=== PATIENT | female | born 1970 | race Caucasian/White ===

== ENCOUNTER 2018-04-27 21:51 | Emergency (ER) | payer SELFPAY ==
--- NOTE | 2018-04-27 22:32 | RAD REPORT ---
EXAM DESCRIPTION: RAD - Chest Single View - 04/27/2018 10:19 pm CLINICAL HISTORY: Chest pain. COMPARISON: None. FINDINGS: Portable technique limits examination quality. The lungs are grossly clear. The heart is normal in size. No displaced fractures.Gastric banding is n oted. IMPRESSION: No acute intrathoracic process suspected.
[2018-04-27] MEDS ORDERED: NA CHLORIDE 0.9% 1,000 ML ONE (22:38)
[2018-04-27] MEDS ORDERED: THIAMINE 200 MG/2 ML INJ ONE (22:38)
[2018-04-27] MEDS ORDERED: LORazepam 2 MG/ML VIAL ONE (22:38)
[2018-04-27 22:51] LABS: Absolute Lymphocytes (CBC) 1.1 K/uL (0.7-4.9); Absolute Monocytes 0.9 K/uL (0.1-1.3); Absolute Neutrophil 7.7 K/uL (1.8-8.0); Basophils % 0.3 % (0-1.3); Eosinophils % 0.6 % (0-4.4); Hematocrit 42.3 % (36.0-45.0); Lymphocytes % 11.7 % (15.3-44.8); MCH 31.5 pg (27.0-35.0); MCV 93.9 fL (80-100); Monocytes % 9.1 % (3.3-12.3)
[2018-04-27 23:10] LABS: Bicarbonate 23 mEq/L (21-31); Glucose Level 101 mg/dL (65-120); Potassium 3.4 mEq/L (3.6-5.0); Sodium Level 140 mEq/L (135-145)
[2018-04-27 23:16] LABS: ALT/SGPT 18 IU/L (10-60); AST/SGOT 27 IU/L (10-42); Albumin 4.1 g/dL (3.2-5.5); Alkaline Phosphatase 73 IU/L (42-121); BUN Blood Urea Nitrogen 7 mg/dL (6-20); Bilirubin Direct 0.1 mg/dL (0-0.2); Bilirubin Total 0.4 mg/dL (0.3-1.2); Creatine Phosphokinase 56 IU/L (22-269); Magnesium 1.8 mg/dL (1.8-2.5); Protein, Total 7.6 g/dL (6.0-8.3)
[2018-04-27 23:31] LABS: Alcohol Serum/Plasma 99 mg/dl
[2018-04-27 23:32] LABS: Protime INR 0.95
--- NOTE | 2018-04-27 23:46 | ER ---
Nurse's Notes [facility] Name: Mariella Hood Age: 47 yrs Sex: Female : 1970 Arrival Date: 04/27/2018 Time: 21:53 Bed 4 Private MD: Diagnosis: Anxiety disorder, unspecified;Alcohol abuse with intoxication;Hypokalemia;Cystitis Presentation: 04/27 21:54 Presenting complaint: EMS states: Patient's son called to report that patient was found ao laying in the floor moaning. Patient received report that she has cancer and it has been hard on her. Patient also report UTI symptoms like burning and urinary frequency in the past few days. Transition of care: patient was not received from another setting of care. Onset of symptoms is unknown. Risk Assessment: Do you want to hurt yourself or someone else? Patient reports no desire to harm self or others. Initial Sepsis Screen: Does the patient meet any 2 criteria? No. Patient's initial sepsis screen is negative. Does the patient have a suspected source of infection? No. Patient's initial sepsis screen is negative. Care prior to arrival: None. 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 - Social history:: Smoking status: Patient uses tobacco products, smokes one pack cigarettes per day. Patient uses alcohol, occasionally. Patient/guardian denies using street drugs, caffeine. - Ebola Screening: : Patient negative for fever greater than or equal to 101.5 degrees Fahrenheit, and additional compatible Ebola Virus Disease symptoms Patient denies exposure to infectious person Patient denies travel to an Ebola-affected area in the 21 days before illness onset. Screenin:05 Abuse screen: Denies threats or abuse. Denies injuries from another. Nutritional ao screening: No deficits noted. Tuberculosis screening: No symptoms or risk factors identified. Fall Risk None identified. Assessment: 22:04 General: Appears in no apparent distress. comfortable, Behavior is calm, cooperative, ao appropriate for age, Smells of alcohol. Pain: Complains of pain in mouth Pain does not radiate. Neuro: Level of Consciousness is awake, alert, obeys commands, Oriented to person, place, time, situation, Appropriate for age Moves all extremities. Speech is normal, Facial symmetry appears normal, Pupils are PERRLA. Cardiovascular: Capillary refill < 3 seconds Patient's skin is warm and dry. Respiratory: Airway is patent Respiratory effort is even, unlabored, Respiratory pattern is regular, symmetrical. GI: Abdomen is non-distended. : Reports burning with urination, pain with urination, urgency, urinary frequency. EENT: No signs and/or symptoms were reported regarding the EENT system. Derm: Skin is intact, Skin is pink, warm \T\ dry. Skin temperature is warm. Musculoskeletal: Circulation, motion, and sensation intact. Range of motion: intact in all extremities. 22:55 Reassessment: Patient appears in no apparent distress at this time. Patient and/or ao family updated on plan of care and expected duration. Pain level reassessed. Patient is alert, oriented x 3, equal unlabored respirations, skin warm/dry/pink. 04/28 00:42 Reassessment: Patient appears in no apparent distress at this time. DC instructions ao given to patient. Patient agree with the POC and to follow up with PCP. Patient has no questions at this time. Vital Signs: 04/27 21:57 BP 95 / 63; Pulse 104; Resp 24; Temp 99.0; Pulse Ox 99% on R/A; Weight 68.04 kg (R); ao Height 5 ft. 2 in. (157.48 cm) (R); Pain 0/10; 22:55 BP 102 / 64; Pulse 92; Resp 20; Pulse Ox 99% on R/A; ao 04/28 00:42 BP 104 / 75; Pulse 78; Resp 16; Pulse Ox 100% on R/A; Pain 0/10; ao 04/27 21:57 Body Mass Index 27.44 (68.04 kg, 157.48 cm) ao ED Course: 04/27 21:53 Patient arrived in ED. ao 21:54 Tamir Del Valle MD is Attending Physician. arnoldo 21:57 Triage completed. ao 21:57 Arm band placed on right wrist. Patient placed in an exam room, on a stretcher, on ao pulse oximetry, Patient notified of wait time. 22:06 Patient has correct armband on for positive identification. Pulse ox on. NIBP on. ao 22:07 Rickie Terrell, RN is Primary Nurse. ao 22:15 X-ray completed. Portable x-ray completed in exam room. Patient tolerated procedure jb2 well. 22:16 XRAY Chest (1 view) In Process Unspecified. EDMS 22:35 Inserted saline lock: 20 gauge in left antecubital area, using aseptic technique. Blood ao collected. 04/28 00:44 No provider procedures requiring assistance completed. IV discontinued, intact, ao bleeding controlled, No redness/swelling at site. Pressure dressing applied. Administered Medications: 04/27 22:40 Drug: Thiamine 100 mg Route: IV; Rate: bolus; Site: left antecubital; ao 23:59 Follow up: IV Status: Completed infusion ao 22:46 Drug: NS 0.9% 1000 ml Route: IV; Rate: 1 bolus; Site: left antecubital; ao 23:59 Follow up: IV Status: Completed infusion; IV Intake: 1000ml ao 22:46 Drug: Ativan 1 mg Route: IVP; Site: left antecubital; ao 04/28 00:00 Follow up: Response: No adverse reaction ao 04/27 23:59 Drug: Potassium Chloride 20 mEq Route: PO; ao 04/28 00:24 Follow up: Response: No adverse reaction ao 00:35 Drug: Rocephin - (cefTRIAXone) 1 grams Route: IVPB; Infused Over: 30 mins; Site: left ao antecubital; 00:41 Follow up: Response: Medication administered at discharge.; IV Status: Completed ao infusion 00:41 Drug: Cipro 500 mg Route: PO; ao 00:42 Follow up: Response: Medication administered at discharge. ao Intake: 04/27 23:59 IV: 1000ml; Total: 1000ml. ao Outcome: 23:46 Discharge ordered by . [facility] 04/28 00:44 Discharged to home via wheelchair. ao Condition: stable Discharge instructions given to patient, Instructed on discharge instructions, follow up and referral plans. Demonstrated understanding of instructions, follow-up care, medications, Prescriptions given X 2. 00:46 Patient left the ED. ao Signatures: Dispatcher [employer] EDTamir Antonio MD MD cha Buechter, Jesse jb2 Ortiz, Alex, RN RN ao Corrections: (The following items were deleted from the chart) 04/27 22:07 21:54 Presenting complaint: EMS states: Patient's son called to report that patient was ao found laying in the floor moaning. Patient received report that she has cancer and it has been hard on her. ao 22:08 22:04 General: Appears in no apparent distress. comfortable, Behavior is calm, ao cooperative, appropriate for age, ao
--- NOTE | 2018-04-27 23:47 | EDPHYS ---
Physician Documentation [facility] Name: Mariella Hood Age: 47 yrs Sex: Female : 1970 Arrival Date: 04/27/2018 Time: 21:53 Bed 4 Private MD: ED Physician Tamir Del Valle HPI: 04/27 22:07 This 47 yrs old Female presents to ER via EMS with complaints of Anxiety. arnoldo 22:07 The patient has shortness of breath at rest. Onset: The symptoms/episode began/occurred arnoldo just prior to arrival, today. Duration: The symptoms are continuous, and are unchanged since they started. The patient's shortness of breath is aggravated by talking, is alleviated by calming down. The patient presents to the emergency department with anxiety. Past psychiatric history: Prior diagnosis: no previous psychiatric diagnosis known. Associated signs and symptoms: Pertinent positives: non-productive cough, nausea. Severity of symptoms: At their worst the symptoms were mild moderate in the emergency department the symptoms are unchanged. Associated signs and symptoms: Pertinent positives; anxiety, shortness of breath. 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 - Social history:: Smoking status: Patient uses tobacco products, smokes one pack cigarettes per day. Patient uses alcohol, occasionally. Patient/guardian denies using street drugs, caffeine. - Ebola Screening: : Patient negative for fever greater than or equal to 101.5 degrees Fahrenheit, and additional compatible Ebola Virus Disease symptoms Patient denies exposure to infectious person Patient denies travel to an Ebola-affected area in the 21 days before illness onset. ROS: 22:08 Eyes: Negative for injury, pain, redness, and discharge, ENT: Negative for injury, arnoldo pain, and discharge, Neck: Negative for injury, pain, and swelling, Cardiovascular: Negative for chest pain, palpitations, and edema. 22:08 Constitutional: Negative for fever, chills, and weight loss, Abdomen/GI: Negative for abdominal pain, nausea, vomiting, diarrhea, and constipation, Back: Negative for injury and pain, : Negative for injury, bleeding, discharge, and swelling, MS/Extremity: Negative for injury and deformity, Skin: Negative for injury, rash, and discoloration, Neuro: Negative for headache, weakness, numbness, tingling, and seizure, Allergy/Immunology: Negative for hives, rash, and allergies, Endocrine: Negative for neck swelling, polydipsia, polyuria, polyphagia, and marked weight changes, Hematologic/Lymphatic: Negative for swollen nodes, abnormal bleeding, and unusual bruising. 22:08 Constitutional: 22:08 Respiratory: Positive for shortness of breath. 22:08 Psych: Positive for anxiety. Exam: 22:08 Constitutional: This is a well developed, well nourished patient who is awake, alert, arnoldo and in no acute distress. Head/Face: Normocephalic, atraumatic. Eyes: Pupils equal round and reactive to light, extra-ocular motions intact. Lids and lashes normal. Conjunctiva and sclera are non-icteric and not injected. Cornea within normal limits. Periorbital areas with no swelling, redness, or edema. ENT: Nares patent. No nasal discharge, no septal abnormalities noted. Tympanic membranes are normal and external auditory canals are clear. Oropharynx with no redness, swelling, or masses, exudates, or evidence of obstruction, uvula midline. Mucous membranes moist. Neck: Trachea midline, no thyromegaly or masses palpated, and no cervical lymphadenopathy. Supple, full range of motion without nuchal rigidity, or vertebral point tenderness. No Meningismus. Chest/axilla: Normal chest wall appearance and motion. Nontender with no deformity. No lesions are appreciated. Cardiovascular: Regular rate and rhythm with a normal S1 and S2. No gallops, murmurs, or rubs. Normal PMI, no JVD. No pulse deficits. Respiratory: Lungs have equal breath sounds bilaterally, clear to auscultation and percussion. No rales, rhonchi or wheezes noted. No increased work of breathing, no retractions or nasal flaring. Abdomen/GI: Soft, non-tender, with normal bowel sounds. No distension or tympany. No guarding or rebound. No evidence of tenderness throughout. Back: No spinal tenderness. No costovertebral tenderness. Full range of motion. Female : Normal external genitalia. Skin: Warm, dry with normal turgor. Normal color with no rashes, no lesions, and no evidence of cellulitis. MS/ Extremity: Pulses equal, no cyanosis. Neurovascular intact. Full, normal range of motion. Neuro: Awake and alert, GCS 15, oriented to person, place, time, and situation. Cranial nerves II-XII grossly intact. Motor strength 5/5 in all extremities. Sensory grossly intact. Cerebellar exam normal. Normal gait. Psych: Awake, alert, with orientation to person, place and time. Behavior, mood, and affect are within normal limits. 22:08 Musculoskeletal/extremity: DVT Exam: No signs of deep vein thrombosis. no pain, no swelling, no tenderness, negative Homans' sign noted on exam, no appreciated bluish discoloration, no erythema, no increased warmth. Vital Signs: 21:57 BP 95 / 63; Pulse 104; Resp 24; Temp 99.0; Pulse Ox 99% on R/A; Weight 68.04 kg (R); ao Height 5 ft. 2 in. (157.48 cm) (R); Pain 0/10; 22:55 BP 102 / 64; Pulse 92; Resp 20; Pulse Ox 99% on R/A; ao 04/28 00:42 BP 104 / 75; Pulse 78; Resp 16; Pulse Ox 100% on R/A; Pain 0/10; ao 04/27 21:57 Body Mass Index 27.44 (68.04 kg, 157.48 cm) ao MDM: 04/27 21:54 Patient medically screened. [facility] 22:10 Data reviewed: vital signs, nurses notes, lab test result(s), EKG, radiologic studies, [facility] plain films. 04/27 22:06 Order name: Basic Metabolic Panel [facility] 04/27 22:06 Order name: BNP; Complete Time: 23:33 [facility] 04/27 22:06 Order name: CBC with Diff; Complete Time: 22:58 [facility] 04/27 22:06 Order name: Ckmb [facility] 04/27 22:06 Order name: CPK; Complete Time: 23:33 [facility] 04/27 22:06 Order name: LFT's; Complete Time: 23:33 [facility] 04/27 22:06 Order name: Magnesium; Complete Time: 23:33 [facility] 04/27 22:06 Order name: PT-INR; Complete Time: 23:43 [facility] 04/27 22:06 Order name: Ptt, Activated; Complete Time: 23:43 [facility] 04/27 22:06 Order name: Troponin (emerg Dept Use Only); Complete Time: 23:33 [facility] 04/27 22:06 Order name: Acetaminophen; Complete Time: 23:33 [facility] 04/27 22:06 Order name: ETOH Level; Complete Time: 23:33 [facility] 04/27 22:06 Order name: Salicylate; Complete Time: 23:33 [facility] 04/27 22:06 Order name: Urine Drug Screen [facility] 04/27 22:06 Order name: XRAY Chest (1 view); Complete Time: 22:58 [facility] 04/27 22:06 Order name: EKG; Complete Time: 22:07 [facility] 04/27 22:06 Order name: Cardiac monitoring; Complete Time: 22:47 [facility] 04/27 22:07 Order name: Basic Metabolic Panel; Complete Time: 23:33 [facility] 04/27 22:07 Order name: CKMB Creatine Kinase MB; Complete Time: 23:33 [facility] 04/28 00:15 Order name: Urine Dipstick--Ancillary (enter results) [facility] 04/28 00:15 Order name: Urine --Ancillary (enter results) [facility] 04/27 22:06 Order name: EKG - Nurse/Tech; Complete Time: 22:47 [facility] 04/27 22:06 Order name: IV Saline Lock; Complete Time: 22:47 [facility] 04/27 22:06 Order name: Labs collected and sent; Complete Time: 22:47 [facility] 04/27 22:06 Order name: O2 Per Protocol; Complete Time: 22:11 [facility] 04/27 22:06 Order name: O2 Sat Monitoring; Complete Time: 22:11 [facility] Administered Medications: 22:40 Drug: Thiamine 100 mg Route: IV; Rate: bolus; Site: left antecubital; ao 23:59 Follow up: IV Status: Completed infusion ao 22:46 Drug: NS 0.9% 1000 ml Route: IV; Rate: 1 bolus; Site: left antecubital; ao 23:59 Follow up: IV Status: Completed infusion; IV Intake: 1000ml ao 22:46 Drug: Ativan 1 mg Route: IVP; Site: left antecubital; ao 06/14 00:00 Follow up: Response: No adverse reaction ao 04/27 23:59 Drug: Potassium Chloride 20 mEq Route: PO; ao 04/28 00:24 Follow up: Response: No adverse reaction ao 00:35 Drug: Rocephin - (cefTRIAXone) 1 grams Route: IVPB; Infused Over: 30 mins; Site: left ao antecubital; 00:41 Follow up: Response: Medication administered at discharge.; IV Status: Completed ao infusion 00:41 Drug: Cipro 500 mg Route: PO; ao 00:42 Follow up: Response: Medication administered at discharge. ao Disposition: 04/27/18 23:46 Discharged to Home. Impression: Anxiety disorder, unspecified, Alcohol abuse with intoxication, Hypokalemia, Cystitis. - Condition is Stable. - Discharge Instructions: Panic Attacks, Potassium Content of Foods, Dysuria, Panic Attacks, [id number], Hypokalemia. - Prescriptions for Benadryl 25 mg Oral Capsule - take 1 capsule by ORAL route every 6 hours As needed; 30 tablet. Cipro 250 mg Oral Tablet - take 1 tablet by ORAL route every 12 hours; 14 tablet. - Medication Reconciliation Form, Thank You Letter, Antibiotic Education, Prescription Opioid Use form. - Follow up: Private Physician; When: 2 - 3 days; Reason: Recheck today's complaints, Continuance of care, Re-evaluation by your physician. - Problem is new. - Symptoms have improved. Signatures: Dispatcher [employer] EDTamir Antonio MD MD cha Ortiz, Alex, RN RN ao Corrections: (The following items were deleted from the chart) 00:17 04/27 23:46 04/27/2018 23:46 Discharged to Home. Impression: Anxiety disorder, arnoldo unspecified; Alcohol abuse with intoxication; Hypokalemia. Condition is Stable. Discharge Instructions: Panic Attacks, Panic Attacks, [id number]. Prescriptions for Benadryl 25 mg Oral Capsule - take 1 capsule by ORAL route every 6 hours As needed; 30 tablet. and Forms are Medication Reconciliation Form, Thank You Letter, Antibiotic Education, Prescription Opioid Use. Follow up: Private Physician; When: 2 - 3 days; Reason: Recheck today's complaints, Continuance of care, Re-evaluation by your physician. Problem is new. Symptoms have improved. [facility] 04/28 00:46 00:17 04/27/2018 23:46 Discharged to Home. Impression: Anxiety disorder, unspecified; ao Alcohol abuse with intoxication; Hypokalemia; Cystitis. Condition is Stable. Discharge Instructions: Panic Attacks, Panic Attacks, [id number], Potassium Content of Foods, Hypokalemia. Prescriptions for Benadryl 25 mg Oral Capsule - take 1 capsule by ORAL route every 6 hours As needed; 30 tablet. and Forms are Medication Reconciliation Form, Thank You Letter, Antibiotic Education, Prescription Opioid Use. Follow up: Private Physician; When: 2 - 3 days; Reason: Recheck today's complaints, Continuance of care, Re-evaluation by your physician. Problem is new. Symptoms have improved. [facility]
[2018-04-27] MEDS ORDERED: POTASSIUM CL SA 10 MEQ TAB PO ONE (23:48)
[2018-04-28 00:28] LABS: Barbiturates NEGATIVE (NEGATIVE); Benzodiazepines POSITIVE (NEGATIVE); Cocaine NEGATIVE (NEGATIVE); METHAMPHETAM POSITIVE (NEGATIVE); Opiates NEGATIVE (NEGATIVE); Phencyclidine NEGATIVE (NEGATIVE); THC Cannibis POSITIVE (NEGATIVE)
[2018-04-28] MEDS ORDERED: CIPROFLOXACIN HCL 500 MG TAB ONE (00:28)
[2018-04-28] MEDS ORDERED: CEFTRIAXONE/SWI 1gm 1 GM/10 ML SYR ONE (00:29)
[2018-04-28] MEDS ORDERED: ONDANSETRON 4 MG/2 ML VIAL ONE (00:35)
[2018-04-28 00:37] LABS: Urine Blood 1+ (NEG); Urine Glucose NEGATIVE (NEG); Urine Protein NEGATIVE (NEG); Urine pH 7.5 (5.0-7.0)
--- NOTE | 2018-04-28 08:26 | EKG ---
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
== END 2018-04-28 00:46 | disposition home or self-care (01) ==
LOC: ER 21:51
DX: F10.129 Alcohol abuse with intoxication, unspecified (principal); N30.90 Cystitis, unspecified without hematuria; E87.6 Hypokalemia; F17.210 Nicotine dependence, cigarettes, uncomplicated
CPT/HCPCS: 36415; 71045; 80048; 80076; 80307; 80320; 80329; 81003; 81025; 82550; 82553; 83735; 83880; 84484; 85025; 85610; 85730; 93005; 96365; 96375; 99284; J0696; J2405; J3411; J7030